=== PATIENT | male | born 1955 | race Two or more races ===

== ENCOUNTER 2018-11-06 18:13 | Inpatient (IN) | payer OTHER ==
[~2018-11-06] VITALS: Ht 172.7 cm; Wt 56.7 kg
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
[2018-11-06] MEDS ORDERED: IV NS 0.9% 500 ML BAG IV ONE (19:00)
[2018-11-06 19:20] LABS: BASOPHILS % (AUTO) 0.8 % (0.0-2.0); EOSINOPHILS % (AUTO) 1.6 % (0.0-6.0); HEMATOCRIT 31 % (39-51); HEMOGLOBIN 10.1 g/dL (13.5-17.5); LYMPHOCYTES % (AUTO) 19.2 % (20.0-44.0); MEAN CORPUSCULAR HGB CONC 33 g/dl (31.0-36.0); MEAN CORPUSCULAR VOLUME 91 fL (80-96); MONOCYTES % (AUTO) 18.9 % (2.0-12.0); NEUTROPHILS # (AUTO) 3.1 /CMM (1.8-8.9); NEUTROPHILS % (AUTO) 59.5 % (43.0-81.0); PLATELET COUNT (AUTO) 139 /CMM (150-450); RED BLOOD CELL COUNT(AUTO) 3.36 MIL/uL (4.5-6.0); WHITE BLOOD COUNT (AUTO) 5.3 K/uL (4.3-11.0)
[2018-11-06 19:32] LABS: CALCIUM, SERUM 7.6 mg/dL (8.5-10.1); CARBON DIOXIDE 25 mmol/L (21-32); CHLORIDE 105 mmol/L (98-107); CREATININE 0.8 mg/dL (0.6-1.3); GLUCOSE 94 mg/dL (74-106); POTASSIUM 3.6 mmol/L (3.5-5.1); SODIUM SERUM 137 mmol/L (136-145); UREA NITROGEN, BLOOD 15 mg/dL (7-18)
[2018-11-06 19:34] LABS: BILIRUBIN,DIRECT 0.5 mg/dL (0.0-0.2); BILIRUBIN,TOTAL 1.2 mg/dL (0.2-1.0)
[2018-11-06 19:35] LABS: ALANINE AMINOTRANSFERASE 57 U/L (12-78); ALBUMIN 2.2 g/dL (3.4-5.0); ALKALINE PHOSPHATASE 151 U/L (46-116); ASPARTATE AMINOTRANSFERASE 122 U/L (15-37); TOTAL PROTEIN, SERUM 6.5 g/dL (6.4-8.2)
[2018-11-06 19:46] LABS: LIPASE 91 U/L (73-393)
[2018-11-06 20:01] LABS: SERUM AMMONIA 37 umol/L (11-32)
[2018-11-06 20:44] LABS: EOSINOPHILS % (AUTO) 2.2 % (0.0-6.0); HEMATOCRIT 30 % (39-51); HEMOGLOBIN 9.8 g/dL (13.5-17.5); MEAN CORPUSCULAR HGB CONC 33 g/dl (31.0-36.0); MEAN CORPUSCULAR VOLUME 90 fL (80-96); MONOCYTES # (AUTO) 0.9 /CMM (0.1-1.30); MONOCYTES % (AUTO) 18.9 % (2.0-12.0); NEUTROPHILS # (AUTO) 2.8 /CMM (1.8-8.9); NEUTROPHILS % (AUTO) 56.9 % (43.0-81.0); PLATELET COUNT (AUTO) 127 /CMM (150-450); RED BLOOD CELL COUNT(AUTO) 3.27 MIL/uL (4.5-6.0); WHITE BLOOD COUNT (AUTO) 4.9 K/uL (4.3-11.0)
--- NOTE | 2018-11-06 21:42 | NUR ---
CALLED [facility]URS [facility] FOR BED.
--- NOTE | 2018-11-06 21:48 | NUR ---
CALLED [facility]. SPECIAL EDUCATION DIRECTOR WAS PAGED
[2018-11-06 21:49] LABS: BAND % (MANUAL) 1 % (0.0-5.0); LYMPHOCYTES % (MANUAL) 18 % (16-48); MONOCYTES % (MANUAL) 13 % (0-11.0); NEUTROPHILS % (MANUAL) 68 (42-76)
--- NOTE | 2018-11-06 21:49 | NUR ---
MS BED 323-2 GIVEN
[2018-11-06] MEDS ORDERED: ONDANSETRON HCL/PF 4 MG/2 ML VIAL IV ONE (22:00)
[2018-11-06] MEDS ORDERED: MORPHINE SULFATE INJ 2 MG/ML DISP.SYRIN IV ONE (22:00)
[2018-11-06] MEDS ORDERED: ONDANSETRON HCL/PF 4 MG/2 ML VIAL ONE (22:06)
[2018-11-06] MEDS ORDERED: MORPHINE SULFATE INJ 4 MG/ML DISP.SYRIN ONE (22:06)
--- NOTE | 2018-11-06 22:10 | NUR ---
REPORT GIVEN TO RITCHIE SHERMAN FOR KAMLA; PT WILL BE TRANSPORTED TO 3RD FLOOR VIA [facility]
--- NOTE | 2018-11-06 23:22 | NUR ---
WARP HAULER NOTES PATIENT ARRIVED ON THE UNIT AT 2245 VIA [facility]OS[facility]
[2018-11-06 23:23] VITALS: BP 127/71
--- NOTE | 2018-11-06 23:48 | NUR ---
RN NOTES UPON ADMISSION PATIENT IS A/O X 3. NO SIGNS OF RESPIRATORY DISTRESS. PATIENT DENIES SOB. PATIENT STATES HE FEELS PAIN 5/10 IN HIS GUT AT THIS TIME. VITAL SIGNS ARE STABLE UPON ADMISSION, SEE EMR. DR. MIKE PUT ADMISSION ORDERS. SAFETY PRECAUTIONS IMPLEMENTED; CALL LIGHT WITHIN REACH, BED LOW, LOCKED, SIDERAILS UP X2. ALL BELONGINGS LEFT AT BEDSIDE. BELONGINGS WAS CHECKED BY CARRIE LIANG. WILL CONTINUE TO MONITOR PATIENT.
[2018-11-06] MEDS ORDERED: PIPERACILLIN /TAZOBACTAM 3.375 G VIAL IV ONE (23:59)
[2018-11-07] MEDS ORDERED: ZOLPIDEM TARTRATE 5 MG TABLET PO PRN
[2018-11-07] MEDS ORDERED: MAG HYDROX/AL HYDROX/SIMETH 30 ML UDC PO PRN
[2018-11-07] MEDS ORDERED: ONDANSETRON HCL/PF 4 MG/2 ML VIAL IVP PRN
[2018-11-07] MEDS ORDERED: MAGNESIUM HYDROXIDE 30 ML UDC PO PRN
[2018-11-07] MEDS ORDERED: ACETAMINOPHEN 325 MG TABLET PO PRN
[2018-11-07] MEDS ORDERED: Z GUARD REMEDY 2 OZ OINT TP PRN
--- NOTE | 2018-11-07 00:22 | NUR ---
RN NOTES ACKNOWLEDGED ORDERS. AWAITING VERIFICATION FROM PHARMACY BEFORE ADMINISTERING.
[2018-11-07] MEDS: PIPERACILLIN /TAZOBACTAM 3.375 G in IV D5W 50 ML IV SCH ×2 (00:43→05:12)
[2018-11-07] MEDS ORDERED: PIPERACILLIN /TAZOBACTAM 3.375 G VIAL IV ONE (05:00)
[2018-11-07 06:39] LABS: APPEARANCE,URINE SL CLOUDY (CLEAR); BILIRUBIN,URINE NEGATIVE (NEGATIVE); BLOOD, URINE 3+ Ery/uL (NEGATIVE); KETONES,URINE NEGATIVE (NEGATIVE); LEUKOCYTE ESTERASE ,URINE NEGATIVE (NEGATIVE); NITRITE, URINE NEGATIVE (NEGATIVE); PROTEIN,URINE 1+ mg/dl (NEGATIVE); UGLUCOSE NEGATIVE (NEGATIVE)
--- NOTE | 2018-11-07 06:49 | NUR ---
RN CLOSING NOTES PATIENT IS AWAKE, RESTING IN BED COMFORTABLY. PATIENT IS A/O X3. ALL BELONGINGS AT BEDSIDE. NO SIGNS OF RESPIRATORY DISTRESS. DENIES SOB. DENIES PAIN AT THIS TIME. APPLIED DRESSING ON OPEN WOUND ON RIGHT LOWER LEG. PATIENT IS NOT IN ANY DISCOMFORT. ALL NEEDS ATTENDED TO. SAFETY PRECAUTIONS IMPLEMENTED; CALL LIGHT WITHIN REACH, BED LOW, BED LOCKED, SIDERAILS UP X2. WILL ENDORSE TO AM SHIFT FOR CONTINUITY OF CARE.
[2018-11-07 06:53] LABS: COLOR,URINE DARK YELLOW (YELLOW)
[2018-11-07 07:00] LABS: BACTERIA,URINE Few /HPF (None Seen); MUCUS,URINE Few /LPF (None Seen); RBC,URINE 81-100 /HPF (0-2); SQUAMOUS EPITHELIAL CELL,UR Rare /HPF (None Seen)
--- NOTE | 2018-11-07 07:18 | NUR ---
RN OPENING NOTE PT WAS RECEIVED IN BED AT LOWEST AND LOCKED POSITION WITH SIDE RAILS UP X2, A/O X3 BREATHING EVEN AND UNLABORED ON RA, NO S/S OF ANY DISTRESS OR PAIN NOTED AT THIS TIME, NOTED TO HAVE RLE WOUND, IV IS PATENT AND INTACT, SAFETY PRECAUTIONS IN PLACE, CALL LIGHT WITHIN REACH, WILL MONITOR PT ACCORDINGLY
[2018-11-07 08:00] VITALS: BP 123/62
[2018-11-07] MEDS ORDERED: FOLI1TAB16 PO (08:19)
[2018-11-07] MEDS ORDERED: THIA100T74 PO (08:19)
[2018-11-07] MEDS ORDERED: FURO20TA4 PO (08:19)
[2018-11-07] MEDS ORDERED: SPIR50TA5 PO (08:19)
[2018-11-07] MEDS ORDERED: GABA-532 PO (08:19)
[2018-11-07] MEDS ORDERED: LEVE100023 PO (08:19)
[2018-11-07] MEDS ORDERED: METH5TAB2 PO (08:20)
[2018-11-07 08:23] LABS: EOSINOPHILS % (AUTO) 5.3 % (0.0-6.0); HEMATOCRIT 29 % (39-51); LYMPHOCYTES % (AUTO) 21.7 % (20.0-44.0); MEAN CORPUSCULAR HGB CONC 35 g/dl (31.0-36.0); MEAN CORPUSCULAR VOLUME 90 fL (80-96); MONOCYTES # (AUTO) 0.8 /CMM (0.1-1.30); MONOCYTES % (AUTO) 16.6 % (2.0-12.0); NEUTROPHILS # (AUTO) 2.5 /CMM (1.8-8.9); NEUTROPHILS % (AUTO) 55.4 % (43.0-81.0); PLATELET COUNT (AUTO) 130 /CMM (150-450); RED BLOOD CELL COUNT(AUTO) 3.21 MIL/uL (4.5-6.0); WHITE BLOOD COUNT (AUTO) 4.6 K/uL (4.3-11.0)
[2018-11-07 08:40] LABS: CALCIUM, SERUM 7.6 mg/dL (8.5-10.1); CREATININE 0.8 mg/dL (0.6-1.3); MAGNESIUM 1.7 mg/dL (1.8-2.4); PHOSPHORUS 3.1 mg/dL (2.5-4.9); POTASSIUM 3.6 mmol/L (3.5-5.1)
[2018-11-07 09:24] LABS: LYMPHOCYTES % (MANUAL) 23 % (16-48); MONOCYTES % (MANUAL) 14 % (0-11.0); NEUTROPHILS % (MANUAL) 63 (42-76)
--- NOTE | 2018-11-07 10:13 | NUR ---
SW attempted to meet with pt. bedside for a social service consult, however pt. was not in his room and had left for an X-Ray. SW to come back later to see assess pt. for homelessness.
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
--- NOTE | 2018-11-07 11:58 | NUR ---
RN NOTE WOUND DEBRIDEMENT DONE AT THIS TIME BY DR. HUBBARD ON RLE
--- NOTE | 2018-11-07 12:06 | NUR ---
RN NOTE PATIENT TAKEN DOWN FOR MRCP WO CONTRAST AT THIS TIME
[2018-11-07] MEDS: PIPERACILLIN /TAZOBACTAM 3.375 G in IV D5W 100 ML IV SCH ×2 (12:53→20:22)
--- NOTE | 2018-11-07 12:55 | NUR ---
RN NOTE PATIENT BR[facility] AT THIS TIME
[2018-11-07] MEDS: Magnesium 1GM/D5W 100ML PREMIX 100 ML IV SCH ×2 (14:01→14:37)
[2018-11-07 16:00] VITALS: BP 107/65
--- NOTE | 2018-11-07 18:20 | NUR ---
RN CLOSING NOTE PT IN BED AT LOWEST AND LOCKED POSITION WITH SIDE RAILS UP X2, A/O X3 BREATHING EVEN AND UNLABORED ON RA, NO S/S OF ANY DISTRESS OR PAIN NOTED AT THIS TIME, WOUND DEBRIDEMENT DONE ON RLE WOUND TODAY, IV IS PATENT AND INTACT, SAFETY PRECAUTIONS IN PLACE, CALL LIGHT WITHIN REACH, ALL NEEDS ATTENDED TO, WILL ENDORSE TO OBSERVER ELECTRICAL PROSPECTING RN FOR KAMLA.
--- NOTE | 2018-11-07 19:58 | NUR ---
RN NOTES RECEIVED PATIENT ASLEEP IN BED AT LOWEST AND LOCKED POSITION WITH SIDE RAILS UP X2, A/O X3 BREATHING EVEN AND UNLABORED ON RA, NO S/S OF ANY DISTRESS OR PAIN NOTED AT THIS TIME, WOUND DEBRIDEMENT DONE ON RLE WOUND TODAY, IV IS PATENT AND INTACT, NO SIGNS OF PAIN AT THIS TIME, SAFETY PRECAUTIONS IN PLACE, CALL LIGHT WITHIN EASY REACH, ALL NEEDS ATTENDED , WILL CONTINUE TO MONITOR FOR CONTINUITY OF CARE.
[2018-11-07 20:43] VITALS: BP 104/52
[2018-11-07] MEDS: HYDROCODONE/APAP 5/325MG 1 EACH TABLET PO PRN (21:21)
[2018-11-08] MEDS: PIPERACILLIN /TAZOBACTAM 3.375 G in IV D5W 100 ML IV SCH ×3 (04:40→20:21)
[2018-11-08] MEDS: HYDROCODONE/APAP 5/325MG 1 EACH TABLET PO PRN ×4 (05:08→21:43)
[2018-11-08 07:10] LABS: EOSINOPHILS % (AUTO) 6.6 % (0.0-6.0); HEMATOCRIT 30 % (39-51); HEMOGLOBIN 10.3 g/dL (13.5-17.5); LYMPHOCYTES % (AUTO) 20.1 % (20.0-44.0); MEAN CORPUSCULAR HGB CONC 35 g/dl (31.0-36.0); MEAN CORPUSCULAR VOLUME 90 fL (80-96); MONOCYTES # (AUTO) 0.7 /CMM (0.1-1.30); MONOCYTES % (AUTO) 15.5 % (2.0-12.0); NEUTROPHILS # (AUTO) 2.7 /CMM (1.8-8.9); NEUTROPHILS % (AUTO) 56.8 % (43.0-81.0); PLATELET COUNT (AUTO) 117 /CMM (150-450); RED BLOOD CELL COUNT(AUTO) 3.33 MIL/uL (4.5-6.0); WHITE BLOOD COUNT (AUTO) 4.7 K/uL (4.3-11.0)
[2018-11-08 07:23] LABS: ALBUMIN 1.7 g/dL (3.4-5.0); BILIRUBIN,TOTAL 1.2 mg/dL (0.2-1.0); CALCIUM, SERUM 7.4 mg/dL (8.5-10.1); CREATININE 0.8 mg/dL (0.6-1.3); MAGNESIUM 1.9 mg/dL (1.8-2.4); TOTAL PROTEIN, SERUM 5.7 g/dL (6.4-8.2)
--- NOTE | 2018-11-08 07:39 | NUR ---
RN NOTES ALL NEEDS ATTENDED AND MET, NPO SINCE MIDNIGHT FOR NM HEPATOBILIARY HIDA THIS MORNING, ENDORSED TO AM NURSE FOR CONTINUITY OF CARE.
[2018-11-08 08:00] VITALS: BP_SYST 106; BP_DIAS 60; BP_DIAS 63
--- NOTE | 2018-11-08 08:00 | NUR ---
RN OPENING NOTE RECEIVED PT. PT STABLE RESTING IN BED. NO S/S OF RESP DISTRESS. PT HAS C/O PAIN 8/10 IN ABDOMINAL AREA. NORCO WAS GIVEN AT 0500, TYLENOL GIVEN FOR BREAKTHROUGH PAIN. PT SCHEDULED FOR HIDA SCAN IN AM, KEPT NPO SINCE 00:00. SAFETY MEASURES IN PLACE, CALL LIGHT IN REACH. WILL CONT TO MONITOR.
[2018-11-08 09:06] LABS: EOSINOPHILS % (MANUAL) 9 % (0-4); LYMPHOCYTES % (MANUAL) 18 % (16-48); MONOCYTES % (MANUAL) 13 % (0-11.0); NEUTROPHILS % (MANUAL) 60 (42-76)
[2018-11-08 16:00] VITALS: BP 104/60
--- NOTE | 2018-11-08 18:40 | NUR ---
RN medsurg opening notes Received Pt form morning nurse. Pt is alert and oriented X3. Pt is resting in bed comfortably. Awaken easily. No S/S of distress noted. Respiration is unlabored and clear. No SOB. IV sites on L FA #18G is intact, patent and SL. Safety precaution is maintained. Bed at low position and call light is within reach. Will continue to monitor.
--- NOTE | 2018-11-08 18:53 | NUR ---
RN CLOSING NOTE PT IN BED RESTING. HIDA SCAN RESULTS SUSPECT POSSIBLE BILIARY DUCT OCCLUSION, MD TO REVIEW. ALL PT NEEDS ANTICIPATED AND MET. SAFETY MEASURES IN PLACE, CALL LIGHT WITHIN REACH. WILL ENDORSE TO DIRECTOR MEETINGS FOR KAMLA.
[2018-11-08 20:00] VITALS: BP 121/88
--- NOTE | 2018-11-08 21:49 | NUR ---
RN medsurstephanie notes Administered [place] 5-325 tab/PO 1tab as ordered for right abdominal pain 7/10 on pain scale per Pt request. Will continue to monitor.
[2018-11-09] MEDS: PIPERACILLIN /TAZOBACTAM 3.375 G in IV D5W 100 ML IV SCH ×3 (04:22→20:15)
[2018-11-09] MEDS: HYDROCODONE/APAP 5/325MG 1 EACH TABLET PO PRN ×3 (06:16→22:15)
--- NOTE | 2018-11-09 06:18 | NUR ---
RN medsurg notes Administered [place] 5-325 tab/PO 1tab as ordered for lower abdominal pain 7/10 on pain scale per Pt request. Will continue to monitor.
[2018-11-09 06:47] LABS: BASOPHILS % (AUTO) 0.8 % (0.0-2.0); EOSINOPHILS % (AUTO) 7.8 % (0.0-6.0); HEMATOCRIT 33 % (39-51); LYMPHOCYTES % (AUTO) 19.5 % (20.0-44.0); MEAN CORPUSCULAR HGB CONC 34 g/dl (31.0-36.0); MEAN CORPUSCULAR VOLUME 90 fL (80-96); MONOCYTES # (AUTO) 0.8 /CMM (0.1-1.30); MONOCYTES % (AUTO) 14.6 % (2.0-12.0); NEUTROPHILS % (AUTO) 57.3 % (43.0-81.0); PLATELET COUNT (AUTO) 117 /CMM (150-450); RED BLOOD CELL COUNT(AUTO) 3.65 MIL/uL (4.5-6.0); WHITE BLOOD COUNT (AUTO) 5.3 K/uL (4.3-11.0)
[2018-11-09 07:01] LABS: ALBUMIN 1.7 g/dL (3.4-5.0); BILIRUBIN,TOTAL 0.9 mg/dL (0.2-1.0); CALCIUM, SERUM 7.5 mg/dL (8.5-10.1); CREATININE 0.8 mg/dL (0.6-1.3); MAGNESIUM 1.7 mg/dL (1.8-2.4); PHOSPHORUS 3.1 mg/dL (2.5-4.9); POTASSIUM 4.3 mmol/L (3.5-5.1); TOTAL PROTEIN, SERUM 5.8 g/dL (6.4-8.2)
--- NOTE | 2018-11-09 07:07 | NUR ---
RN medsurg notes Pt is resting in bed comfortably with eyes closed. Awaken easily. Respiration is clear and unlabored. NO SOB. No S/S distress noted. IV sites is intact, patent and infusing well. All routine meds have been given including PRN meds as ordered. All needs met. Safety precautions is maintained. Bed at low position and call light is within reach. Will endorse to morning nurse for KAMLA.
--- NOTE | 2018-11-09 07:30 | NUR ---
RN MS NOTES PT IN BED, AWAKE, ALERT AND ORIENTED, STILL WITH COMPLAINT OF ABDOMINAL PAIN BUT STATED THAT IT IS BETTER, CALL LIGHT WITHIN REACH, RESPIRATIONS NORMAL, NEEDS ATTENDED.
[2018-11-09 08:00] VITALS: BP 110/60
[2018-11-09] MEDS: Magnesium 1GM/D5W 100ML PREMIX 100 ML IV SCH ×2 (11:56→13:28)
--- NOTE | 2018-11-09 12:00 | NUR ---
RN MS NOTES PT IN BED, ASLEEP, EASY TO AROUSE, ALERT AND ORIENTED, PAIN MEDICATION GIVEN FOR PAIN MANAGEMENT, CALL LIGHT WITHIN REACH, KEPT CLEAN AND COMFORTABLE IN BED, PT SEEN BY DR. JASSO, PLAN OF CARE DISCUSSED WITH PT, VERBALIZED UNDERSTANIDING.
[2018-11-09 16:00] VITALS: BP 104/52
--- NOTE | 2018-11-09 18:24 | NUR ---
RN MS NOTES PT IN BED, ASLEEP, EASY TO AROUSE, ALERT AND ORIENTED, NO COMPLAINT AT THIS TIME, RESPIRATIONS NORMAL, PT SEEN BY COREY RIOS FOR SURGERY CONSULT, ORDERED TO KEEP NPO EXCEPT MEDS FOR NOW, CALL LIGHT WITHIN REACH, PM CARE DONE, NEEDS ATTENDED.
--- NOTE | 2018-11-09 19:00 | NUR ---
RN medsur opening notes Pt is alert and oriented X3. Pt is sitting in bed comfortably. Denies any pain or discomfort at this time. Respiration is clear and unlabored. Pt is on 2L NC. No SOB. No nausea or vomiting. IV sites On LFA # 18G is intact, patent and infusing well. Pt is NPO at this time. Safety precautions is maintained. Bed at low position and call light is within reach. Instructed to call. Will continue to monitor.
--- NOTE | 2018-11-09 19:43 | NUR ---
RN medsurg notes Dr. Patel the surgeon informed to obtain Pt's medical record from [facility] and any other hospital for the past [address] Patel that [facility] and any other Hospitals Medical offices are closed will be open tomorrow morning. Pt stated " Pt had been to [facility], [facility], [facility] and [facility] in [facility]. Will endorse and inform to morning nurse.
[2018-11-09 19:53] VITALS: BP 115/66
--- NOTE | 2018-11-09 22:15 | NUR ---
WHIT medsurstephanie notes Pt is complaining of lower abdominal pain 7/10 on pain scale. Administered [place] 5/325 mg 1 each Tab/PO as ordered. Will continue to monitor.
--- NOTE | 2018-11-10 | NUR ---
RN medsur notes Pt is resting in bed comfortably with eyes closed. No S/S of distress noted. Will continue to monitor.
[2018-11-10] MEDS: PIPERACILLIN /TAZOBACTAM 3.375 G in IV D5W 100 ML IV SCH ×3 (03:37→21:48)
[2018-11-10] MEDS: HYDROCODONE/APAP 5/325MG 1 EACH TABLET PO PRN ×2 (04:44→15:42)
--- NOTE | 2018-11-10 04:47 | NUR ---
WHIT medsurstephanie notes Pt is complaining of lower abdominal pain 7/10 on pain scale. Administered [place] 5/325 mg 1 each Tab/PO as ordered. Will continue to monitor.
[2018-11-10 06:31] LABS: BASOPHILS # (AUTO) 0.1 /CMM (0.0-0.2); BASOPHILS % (AUTO) 1.3 % (0.0-2.0); EOSINOPHILS % (AUTO) 6.5 % (0.0-6.0); HEMATOCRIT 34 % (39-51); HEMOGLOBIN 11.6 g/dL (13.5-17.5); LYMPHOCYTES % (AUTO) 20.2 % (20.0-44.0); MEAN CORPUSCULAR HGB CONC 34 g/dl (31.0-36.0); MEAN CORPUSCULAR VOLUME 89 fL (80-96); MONOCYTES # (AUTO) 0.7 /CMM (0.1-1.30); MONOCYTES % (AUTO) 13.9 % (2.0-12.0); NEUTROPHILS # (AUTO) 2.9 /CMM (1.8-8.9); NEUTROPHILS % (AUTO) 58.1 % (43.0-81.0); PLATELET COUNT (AUTO) 128 /CMM (150-450); RED BLOOD CELL COUNT(AUTO) 3.83 MIL/uL (4.5-6.0); WHITE BLOOD COUNT (AUTO) 5.1 K/uL (4.3-11.0)
[2018-11-10 06:58] LABS: ALBUMIN 1.8 g/dL (3.4-5.0); BILIRUBIN,DIRECT 0.6 mg/dL (0.0-0.2); BILIRUBIN,TOTAL 1.4 mg/dL (0.2-1.0)
[2018-11-10 07:00] LABS: CALCIUM, SERUM 7.4 mg/dL (8.5-10.1); CREATININE 0.9 mg/dL (0.6-1.3); MAGNESIUM 1.9 mg/dL (1.8-2.4); POTASSIUM 4.5 mmol/L (3.5-5.1)
--- NOTE | 2018-11-10 07:00 | NUR ---
RN medsurg closing notes Pt is alert and oriented X3. Pt is sitting in bed comfortably watching TV. Respiration is clear. NO SOB. No nausea or vomiting. No pain or discomfort at this time. IV sites is intact, patent and infusing well. Routine meds have been given and all needs met. Safety precautions is maintained. Bed at low position, bed locked, bed side rails upX2 and call light is within reach. Will endorse to morning nurse for KAMLA.
[2018-11-10 08:00] VITALS: BP 117/55
[2018-11-10] MEDS ORDERED: IV D5/ 0.9% NACL 1,000 ML IV ONE (10:30)
[2018-11-10 16:00] VITALS: BP 118/52
--- NOTE | 2018-11-10 18:00 | NUR ---
medicated x1 for foot pain with norco.had mri of cervical spine due to c/o neck pain. Addendum: 11/10/18 at 3 by RYLAN ZAZUETA RN above note on wrong pt.
--- NOTE | 2018-11-10 18:30 | NUR ---
early in shift release of info forms sent to 4 facilities to get info on pt. due to pending surgery,dr. emir kessler calling several times.dr. carvalho's claims examiner here and calling several times.pt. now on full liq. diet.eating small amt.med. x1 for abd. pain with norco.
--- NOTE | 2018-11-10 19:56 | NUR ---
RN NOTES RECEIVED PATIENT ASLEEP IN BED, EASILY AROUSABLE, DENIES ANY PAIN AT THIS TIME, NO APPARENT SIGNS OF ACUTE DISTRESS NOTED, ALL SAFETY MEASURES IN PLACE, CALL LIGHT WITHIN EASY REACH, IV ACCESS INTACT AND PATENT, WILL CONTINUE TO MONITOR ACCORDINGLY.
[2018-11-10 20:00] VITALS: BP 110/58
[2018-11-11] MEDS: HYDROCODONE/APAP 5/325MG 1 EACH TABLET PO PRN ×4 (00:36→20:48)
[2018-11-11] MEDS: PIPERACILLIN /TAZOBACTAM 3.375 G in IV D5W 100 ML IV SCH ×3 (03:25→19:56)
--- NOTE | 2018-11-11 06:06 | NUR ---
RN NOTES ALL NEEDS ATTENDED AND MET, KEPT CLEAN DRY AND COMFORTABLE,C/O ABDOMINAL PAIN 12/07, NORCO 5-325 MG PRN GIVEN AT 0559, WILL MONITOR, REPOSITIONED, ASPIRATION PRECAUTION EMPHASIZE, SAFETY MEASURES IN PLACE, CALL LIGHT WITHIN EASY REACH. WILL ENDORSE TO AM NURSE TO CALL HOSPITAL FROM WHICH PATIENT HAS BEEN CONFINED, TO OBTAIN MEDICAL RECORDS PER DR. CARDONA. FOR CONTINUITY OF CARE.
[2018-11-11 07:25] LABS: BASOPHILS # (AUTO) 0.1 /CMM (0.0-0.2); BASOPHILS % (AUTO) 1.3 % (0.0-2.0); EOSINOPHILS % (AUTO) 6.7 % (0.0-6.0); HEMATOCRIT 36 % (39-51); HEMOGLOBIN 12.1 g/dL (13.5-17.5); LYMPHOCYTES % (AUTO) 19.3 % (20.0-44.0); MEAN CORPUSCULAR HGB CONC 34 g/dl (31.0-36.0); MEAN CORPUSCULAR VOLUME 89 fL (80-96); MONOCYTES # (AUTO) 0.6 /CMM (0.1-1.30); MONOCYTES % (AUTO) 12.6 % (2.0-12.0); NEUTROPHILS % (AUTO) 60.1 % (43.0-81.0); PLATELET COUNT (AUTO) 138 /CMM (150-450); RED BLOOD CELL COUNT(AUTO) 4.01 MIL/uL (4.5-6.0); WHITE BLOOD COUNT (AUTO) 5.1 K/uL (4.3-11.0)
[2018-11-11 07:55] LABS: ALBUMIN 1.8 g/dL (3.4-5.0); BILIRUBIN,TOTAL 1.4 mg/dL (0.2-1.0); CALCIUM, SERUM 7.8 mg/dL (8.5-10.1); CREATININE 0.8 mg/dL (0.6-1.3); MAGNESIUM 1.7 mg/dL (1.8-2.4); PHOSPHORUS 3.3 mg/dL (2.5-4.9); POTASSIUM 4.4 mmol/L (3.5-5.1); TOTAL PROTEIN, SERUM 6.2 g/dL (6.4-8.2)
--- NOTE | 2018-11-11 07:56 | NUR ---
M/S RN NOTES PATIENT AWAKE LYING IN BED, NO RESPIRATORY DISTRESS NOTED, NO C/O PAIN AT THIS TIME. SKIN WARM TO TOUCH. IV SL ON THE LFA #18G, INTACT AND PATENT. PATIENT'S NEEDS ATTENDED. BED ON LOWEST LOCKED POSITION, CALL LIGHT WITHIN REACH. WILL CONTINUE TO MONITOR.
[2018-11-11 08:00] VITALS: BP_SYST 110; BP_SYST 177; BP_DIAS 109; BP_DIAS 59
[2018-11-11] MEDS: Magnesium 1GM/D5W 100ML PREMIX 100 ML IV SCH ×2 (11:00→12:20)
[2018-11-11 15:00] VITALS: BP 119/60
--- NOTE | 2018-11-11 18:45 | NUR ---
M/S RN NOTES PATIENT AWAKE LYING IN BED, NO RESPIRATORY DISTRESS NOTED, NO C/O PAIN AT THIS TIME. SKIN WARM TO TOUCH. RLE DRESSING CLEAN, DRY AND INTACT. IV SL ON THE LFA #18G, INTACT AND PATENT. PATIENT'S NEEDS ATTENDED. BED ON LOWEST LOCKED POSITION, CALL LIGHT WITHIN REACH. WILL CONTINUE TO MONITOR.
--- NOTE | 2018-11-11 19:30 | NUR ---
MS RN OPENING NOTES Received patient in bed, watching TV, alert, oriented x 3. breathing even and unlabored. Not in any distress, on room air. No complaints at this time. IV on LFA g#18 intact and patent. Dressing on RLE intact, clean and dry. Call light within reach. Bed in low, locked position. Will continue to monitor accordingly
[2018-11-11 20:00] VITALS: BP 101/46
--- NOTE | 2018-11-11 20:49 | NUR ---
RN NOTES Patient c/o abdominal pain 01/07. Requested for pain pill. [place] 5-325 given as ordered. Will continue to monitor
[2018-11-12] MEDS: PIPERACILLIN /TAZOBACTAM 3.375 G in IV D5W 100 ML IV SCH ×3 (04:00→19:26)
--- NOTE | 2018-11-12 06:32 | NUR ---
MS RN CLOSING NOTES Patient still sleeping in bed, easily arousable. Breathing even and unlabored. Not in any distress, on room air. IV antibiotic of Zosyn currently infusing at 25mL/hr. No acute changes overnight. Call light within reach. Bed in lowest locked position. Will endorse KAMLA to oncoming RN
[2018-11-12 07:40] LABS: CALCIUM, SERUM 7.6 mg/dL (8.5-10.1); CREATININE 0.8 mg/dL (0.6-1.3); MAGNESIUM 1.9 mg/dL (1.8-2.4); PHOSPHORUS 3.4 mg/dL (2.5-4.9); POTASSIUM 4.7 mmol/L (3.5-5.1)
[2018-11-12 07:47] LABS: BASOPHILS # (AUTO) 0.1 /CMM (0.0-0.2); BASOPHILS % (AUTO) 1.7 % (0.0-2.0); EOSINOPHILS % (AUTO) 6.8 % (0.0-6.0); HEMATOCRIT 36 % (39-51); HEMOGLOBIN 12.3 g/dL (13.5-17.5); LYMPHOCYTES # (AUTO) 1.2 /CMM (0.8-4.8); LYMPHOCYTES % (AUTO) 20.8 % (20.0-44.0); MEAN CORPUSCULAR HGB CONC 34 g/dl (31.0-36.0); MEAN CORPUSCULAR VOLUME 89 fL (80-96); MONOCYTES # (AUTO) 0.7 /CMM (0.1-1.30); MONOCYTES % (AUTO) 12.5 % (2.0-12.0); NEUTROPHILS # (AUTO) 3.3 /CMM (1.8-8.9); NEUTROPHILS % (AUTO) 58.2 % (43.0-81.0); PLATELET COUNT (AUTO) 152 /CMM (150-450); RED BLOOD CELL COUNT(AUTO) 4.06 MIL/uL (4.5-6.0); WHITE BLOOD COUNT (AUTO) 5.7 K/uL (4.3-11.0)
[2018-11-12 07:48] LABS: ALBUMIN 1.9 g/dL (3.4-5.0); BILIRUBIN,DIRECT 0.4 mg/dL (0.0-0.2); BILIRUBIN,TOTAL 1.1 mg/dL (0.2-1.0); TOTAL PROTEIN, SERUM 6.4 g/dL (6.4-8.2)
--- NOTE | 2018-11-12 07:51 | NUR ---
RN OPENING NOTES PT AWAKE AND RESTING IN BED. NO COMPLAINTS OF PAIN, SOB OR DISTRESS AT THIS TIME. PT IS ON 2L O2 VIA NASAL CANNULA. PT HAS LEFT [place] #18 IV INTACT AND PATENT. SAFETY PRECAUTIONS IN PLACE, BED IN LOWEST LOCKED POSITION, X2 SIDE RAILS UP AND CALL LIGHT WITHIN REACH. WILL CONTINUE TO MONITOR.
[2018-11-12 08:00] VITALS: BP 110/54
[2018-11-12] MEDS: HYDROCODONE/APAP 5/325MG 1 EACH TABLET PO PRN ×2 (11:24→19:21)
[2018-11-12 15:44] VITALS: BP 113/50
--- NOTE | 2018-11-12 18:51 | NUR ---
RN CLOSING NOTES PT AWAKE AND RESTING IN BED. NO COMPLAINTS OF PAIN, SOB OR DISTRESS AT THIS TIME. PT HAS LEFT FOREARM #18 IV INTACT AND PATENT. PT WILL BE GOING HOME WITH IV. HOME HEALTH WILL CONTINUE IV ZOSYN FOR 8 DAYS. ALL DISCHARGE PAPERWORK EXPLAINED, SIGNED, AND COPIED AND GIVEN TO THE PATIENT. ALL PATIENT BELONGINGS ACCOUNTED FOR AND DOCUMENTED. WILL ENDORSE TO COIL STRAPPER NURSE FOR CONTINUITY OF CARE.
--- NOTE | 2018-11-12 19:21 | NUR ---
MS RN OPENING NOTES Received patient in bed, watching tv. Breathing even and unlabored. Not in any distress. Complaining of abdominal pain, 12/07 and requesting for pain pill. [place] 5-325 given as ordered. Safety measures in place; call light within reach, bed in lowest locked position. Will continue to monitor accordingly.
[2018-11-12 20:00] VITALS: BP 126/60
--- NOTE | 2018-11-12 21:10 | NUR ---
RN NOTES Patient is asking about his debit card and his ID. CARRIE Frazier and I checked the belongings list- there is no ID or debit card listed when the patient came to the unit. Informed him about it and we checked his belonging again. No ID and debit card found
--- NOTE | 2018-11-12 22:15 | NUR ---
RN NOTES CALLED [employer] [employer] PATIENT WAS ASKING FOR A VOUCHER BECAUSE PER PT. HE'S FRIEND IS NOT GOING TO PICK HIM UP NOW BECAUSE PATIENT BLAMING US THAT WE LOST HIS IDENTIFICATION CARD WELL HIS BANK CARD.. WE CHECK HIS BELONGING LIST BUT NOTHING SPECIFY THERE THAT HE HAS THIS CARD.. [employer] WILL COME UP TO TALK TO THE PT.
--- NOTE | 2018-11-12 22:20 | NUR ---
RN NOTES Nurse cottage supervisor, charge nurse, RN and security personnel in patient's room to talk to the patient
--- NOTE | 2018-11-12 22:30 | NUR ---
RN NOTES Got a call from Hero from [employer]. Stated that the address information that the patient gave is not the right address- [facility] came to check but the people who live there does not know him. All the telephone numbers given were also not working or disconnected. Talked also to Sophia, the intake and she asked to speak with Mr. Matson. When the call was transferred, patient did not talk to her and just threw the phone on the bed. Patient refused to talk to her. I talked to Sophia, she said that she will put the order on hold as there is no definite address to go to and no family members that they can reach. Addendum: 11/13/18 at 0131 by SHELL ALCAZAR RN RJ DOMIGNUEZ
--- NOTE | 2018-11-12 22:45 | NUR ---
RN NOTES TALKED TO THE PATIENT IF HE WANTS TO STAY OVERNIGHT SO HE CAN GET HIS ANTIBIOTIC EARLY IN THE MORNING, WERE GOING TO GIVE IT BECAUSE THE PHONE NUMBER THAT HE GAVE US IS NOT WORKING AND PHARMACY WANTS A VALID NUMBER SO THEY CAN GIVE HIS ANTIBIOTIC AT HOME, AND WE CANNOT SEND HIM HOME WITH HIS IV ACCESS IF WERE NOT SURE OF HIS ADDRESS WELL, WE TALKED TO THE PT. IN FRONT OF THE SECURITY TO PACIFY HIM BECAUSE PATIENT DOESN'T WANT TO LISTEN TO US. WE TRIED TO EXPLAINED HIM THAT IF HE WANTS TO LEAVE TOMORROW MORNING SO HE'S FRIEND CAN PICK HIM UP BUT PATIENT INSIST THAT HE WANTS TO GO HOME.. WE EXPLAINED TO THE PATIENT THAT HE SHOULD GIVE US A VALID PHONE NUMBER SO WE CAN GIVE IT TO THE PHARMACY AND WE CANNOT LET HIM GO HOME WITH AN IV ACCESS PATIENT CANNOT PROVIDE A VALID PHONE NUMBER AND HE REALLY WANTS TO LEAVE AND TOLD US TO "REMOVED THE IV ACCESS" SO I CAN GO HOME, EXPLAINED EVERYTHING TO THE PATIENT BUT DOESN'T WANT TO LISTEN
--- NOTE | 2018-11-12 22:45 | NUR ---
RN NOTES Talked to the patient together with the charge nurse if he wanted to stay overnight so we can sort out regarding the IV antibiotics to be given at home. Patient refused to listen and told us to take out his IV line, stated he does not want it anymore and he wants to leave immediately. IV access removed. ID band remained on patient as patient refused to let us take it out. Nurse maintenance and operations supervisor, Deanna is aware of it, said to let the patient keep it.
--- NOTE | 2018-11-12 22:55 | NUR ---
RN NOTES Patient went down together with security and CARRIE Begum with taxi voucher with him, in stable condition.
--- NOTE | 2018-11-12 23:00 | NUR ---
WHIT NOTES Called [facility] to update them that the patient left. As per intake, they will let somebody call me back. Addendum: 11/13/18 at 0131 by SHELL ALCAZAR RN RJ GARCIA
--- NOTE | 2018-11-12 23:30 | NUR ---
RN NOTES Sophia from [facility] called back. Updated her that patient already left with no IV line on. She said she put the order on hold anyway as patient has no clear address and even the daughter's (Peg) phone number is not working or disconnected.
--- NOTE | 2018-11-13 02:50 | NUR ---
RN NOTES Incident report done- unique ID: [id number]
== END 2018-11-12 23:00 | disposition home health service (06) | DRG 197 ==
LOC: ER 18:14 → MED 21:50
PROVIDERS: ADMIT Family Medicine
PROC: 0JBN0ZZ Excision of Right Lower Leg Subcutaneous Tissue and Fascia, Open Approach (ICD-10-PCS; principal; 2018-11-07)
DX: I87.311 Chronic venous hypertension (idiopathic) with ulcer of right lower extremity (principal); E43 Unspecified severe protein-calorie malnutrition; J90 Pleural effusion, not elsewhere classified; D69.6 Thrombocytopenia, unspecified; K80.00 Calculus of gallbladder with acute cholecystitis without obstruction; I11.0 Hypertensive heart disease with heart failure; E88.09 Other disorders of plasma-protein metabolism, not elsewhere classified; I50.30 Unspecified diastolic (congestive) heart failure; E83.42 Hypomagnesemia; I85.00 Esophageal varices without bleeding; L97.819 Non-pressure chronic ulcer of other part of right lower leg with unspecified severity; D63.8 Anemia in other chronic diseases classified elsewhere; E11.9 Type 2 diabetes mellitus without complications; K74.60 Unspecified cirrhosis of liver; F17.210 Nicotine dependence, cigarettes, uncomplicated; G40.909 Epilepsy, unspecified, not intractable, without status epilepticus; Z87.11 Personal history of peptic ulcer disease; J45.909 Unspecified asthma, uncomplicated; R79.89 Other specified abnormal findings of blood chemistry; Z86.73 Personal history of transient ischemic attack (TIA), and cerebral infarction without residual deficits; Z68.1 Body mass index [BMI] 19.9 or less, adult; I87.2 Venous insufficiency (chronic) (peripheral); F10.10 Alcohol abuse, uncomplicated; Z59.0 Homelessness; K59.00 Constipation, unspecified; I86.4 Gastric varices; K76.6 Portal hypertension; J32.0 Chronic maxillary sinusitis
CPT/HCPCS: 36415; 70450-TC; 71045-TC; 72125-TC; 74181-TC; 76705-TC; 78226; 80048-TC; 80053-TC; 80061-TC; 80076-TC; 81000-TC; 82140-TC; 83690-TC; 83735-TC; 84100-TC; 84484-TC; 85025-TC; 85730-TC; 87081-TC; 94799-TC; A6253; A6403; A9537; G0378; G0480; J2270; J2405; J2543; J3475; J7040; J7060